=== PATIENT | female | born 1995 | race Caucasian/White ===

== ENCOUNTER 2019-12-03 11:03 | Emergency (ER) | payer OTHER, MEDICAID ==
[~2019-12-03] VITALS: Ht 160 cm; Wt 80.0 kg
[2019-12-03 11:07] VITALS: BP 117/80
[2019-12-03] MEDS ORDERED: ONDANSETRON 4MG ODT PO ONE (13:15)
== END 2019-12-03 14:11 | disposition home or self-care (01) ==
LOC: ER 11:03
DX: Z03.818 Encounter for observation for suspected exposure to other biological agents ruled out (principal); M79.10 Myalgia, unspecified site; R50.9 Fever, unspecified; R11.0 Nausea; I10 Essential (primary) hypertension
CPT/HCPCS: 71045; 81025; 99284; C9803; Q0162; U0003

== ENCOUNTER 2019-12-04 16:54 | Emergency (ER) | payer MEDICAID ==
[~2019-12-04] VITALS: Ht 160 cm; Wt 73.0 kg
[2019-12-04] MEDS ORDERED: SODIUM CHLORIDE 0.9% 1,000 ML IV ONE (17:37)
[2019-12-04] MEDS ORDERED: ACETAMINOPHEN 325MG TABLET PO STA (17:37)
[2019-12-04] MEDS ORDERED: ONDANSETRON HCL 4MG/2ML INJ IV ONE (17:45)
[2019-12-04 19:10] VITALS: BP 137/91
== END 2019-12-04 19:10 | disposition home or self-care (01) ==
LOC: ER 16:54
DX: J02.9 Acute pharyngitis, unspecified (principal); U07.1 COVID-19; I10 Essential (primary) hypertension; Z88.6 Allergy status to analgesic agent
CPT/HCPCS: 71045; 99283; J7030

== ENCOUNTER 2019-12-08 17:31 | Emergency (ER) | payer MEDICAID, OTHER ==
[~2019-12-08] VITALS: Ht 160 cm; Wt 80.0 kg
[2019-12-08] MEDS ORDERED: IBUPROFEN 600MG TABLET PO ONE (18:00)
[2019-12-08] MEDS ORDERED: MAGNESIUM/ALUMINUM HYDROXIDE/SIMETHICONE 30ML UDC PO STA (18:24)
[2019-12-08] MEDS ORDERED: VISCOUS LIDOCAINE 2% 15 ML UDC PO STA (18:24)
[2019-12-08 18:25] LABS: CLARITY URINE TURBID (CLEAR); COLOR URINE YELLOW (YELLOW); KETONES URINE NEGATIVE (NEGATIVE); LEUKOCYTE ESTERASE URINE NEGATIVE (NEGATIVE); NITRITE URINE NEGATIVE (NEGATIVE); OCCULT BLOOD URINE NEGATIVE (NEGATIVE); PH URINE 7.5 (4.5-8.0); PROTEIN URINE NEGATIVE (NEGATIVE); SPECIFIC GRAVITY URINE 1.012 (1.005-1.030); UROBILINOGEN URINE 0.2 E.U./dL (0.2-1.0)
[2019-12-08] MEDS ORDERED: FLUCONAZOLE 100MG TABLET PO ONE (19:45)
[2019-12-08] MEDS ORDERED: FLUCONAZOLE 150MG TABLET PO NR (19:45)
[2019-12-08 21:43] VITALS: BP 123/70
== END 2019-12-08 21:44 | disposition home or self-care (01) ==
LOC: ER 17:35
DX: U07.1 COVID-19 (principal); R06.02 Shortness of breath; K21.9 Gastro-esophageal reflux disease without esophagitis; R07.89 Other chest pain; I10 Essential (primary) hypertension; Z88.6 Allergy status to analgesic agent
CPT/HCPCS: 71045; 81003; 93005; 99285

== ENCOUNTER 2019-12-10 08:45 | Emergency (ER) | payer MEDICAID, OTHER ==
[~2019-12-10] VITALS: Ht 165.1 cm; Wt 71.0 kg
[2019-12-10 10:00] VITALS: BP 115/87
== END 2019-12-10 10:12 | disposition home or self-care (01) ==
LOC: ER 08:45
DX: U07.1 COVID-19 (principal); M79.10 Myalgia, unspecified site; B37.3 Candidiasis of vulva and vagina; I10 Essential (primary) hypertension; Z88.6 Allergy status to analgesic agent
CPT/HCPCS: 81025; 82962; 93005; 99283

== ENCOUNTER 2020-06-23 21:19 | Emergency (ER) | payer MEDICAID, OTHER ==
[~2020-06-23] VITALS: Ht 160 cm; Wt 73.0 kg
[2020-06-23] MEDS ORDERED: ACETAMINOPHEN 325MG TABLET PO STA (21:53)
[2020-06-23] MEDS ORDERED: ONDANSETRON 4MG ODT PO STA (21:53)
[2020-06-23 22:40] LABS: CLARITY URINE CLEAR (CLEAR); COLOR URINE YELLOW (YELLOW); KETONES URINE NEGATIVE (NEGATIVE); LEUKOCYTE ESTERASE URINE NEGATIVE (NEGATIVE); NITRITE URINE NEGATIVE (NEGATIVE); OCCULT BLOOD URINE NEGATIVE (NEGATIVE); PH URINE 6.5 (4.5-8.0); PROTEIN URINE NEGATIVE (NEGATIVE); SPECIFIC GRAVITY URINE 1.026 (1.005-1.030)
[2020-06-23 22:50] VITALS: BP 131/84
== END 2020-06-23 22:50 | disposition home or self-care (01) ==
LOC: ER 21:19
DX: S00.93XA Contusion of unspecified part of head, initial encounter (principal); W01.0XXA Fall on same level from slipping, tripping and stumbling without subsequent striking against object, initial encounter; Y93.89 Activity, other specified; Y92.89 Other specified places as the place of occurrence of the external cause; Y99.8 Other external cause status
CPT/HCPCS: 81003; 99283; Q0162